=== PATIENT | female | born 1975 | race Asian ===

== ENCOUNTER 2016-09-06 18:00 | Emergency (ER) | payer SELFPAY ==
[2016-09-06 18:13] VITALS: BP 104/71
[2016-09-06] MEDS ORDERED: methylPREDNISolone 125 MG* 2 ML VIAL IM ONE (19:24)
--- NOTE | 2016-09-06 19:40 | UC ---
Allergic Reaction HPI - HPI Summary HPI Summary: ONSET OF INTENSELY PRURITIC ERYTHEMATOUS RASH ALL OVER BODY THIS AFTERNOON. NO NEW EXPOSURES SHE IS AWARE OF. NO RECENT TRAVEL OR PET/ANIMAL EXPOSURE. NO RESPIRATORY INVOLVEMENT. NO NAUSEA. NO FEVER. NO HISTORY OF ALLERGIES. - History of Current Complaint Chief Complaint: UCAllergicReaction Stated Complaint: RASH-ALLERGIC REACTION Time Seen by Provider: 09/06/16 18:58 Hx Obtained From: Patient Hx Last Menstrual Period: 08/28/16 Onset/Duration: Sudden Onset Severity Initially: Moderate Severity Currently: Moderate Pain Intensity: 0 Pain Scale Used: 0-10 Numeric Location: Diffuse Character: Swelling, Pruritus, Hives Aggrevating Factor(s): Nothing Alleviating Factor(s): Nothing Associated Signs And Symptoms: Positive: Rash. Negative: Abdominal Pain, Chest Pain, Cough Wheezing, Diaphoresis, Difficulty Breathing, Hoarseness, Lightheadedness, Nausea, Throat Tightening - Related Hx Possible Reaction To: Unknown - Allergies/Home Medications Allergies/Adverse Reactions: Allergies Allergy/AdvReac Type Severity Reaction Status Date / Time No Known Allergies Allergy Verified 09/06/16 18:05 PMH/Surg Hx/FS Hx/Imm Hx Previously Healthy: Yes - Surgical History Surgical History: None - Family History Known Family History: Positive: Hypertension - Social History Alcohol Use: None Substance Use Type: None Smoking Status (MU): Never Smoked Tobacco Review of Systems Constitutional: Negative Skin: Rash Respiratory: Negative Cardiovascular: Negative Gastrointestinal: Negative All Other Systems Reviewed And Are Negative: Yes Physical Exam Triage Information Reviewed: Yes Appearance: Well-Appearing, No Pain Distress, Well-Nourished Vital Signs: Initial Vital Signs Temp 98 F 09/06/16 18:05 Pulse 65 09/06/16 18:05 Resp 16 09/06/16 18:05 BP 104/71 09/06/16 18:05 Pulse Ox 100 09/06/16 18:05 Vital Signs Reviewed: Yes Eyes: Positive: Conjunctiva Clear ENT: Positive: Hearing grossly normal Neck: Positive: Supple Respiratory Exam: Normal Respiratory: Positive: No respiratory distress, No accessory muscle use Cardiovascular Exam: Normal Abdomen Description: Positive: Soft Musculoskeletal: Positive: No Edema Neurological: Positive: Alert Psychological: Positive: Age Appropriate Behavior Skin: Positive: rashes - LARGE ERYTHEMATOUS WHEALS ALL OVER - TRUNK, UPPER AND LOWER EXTREMITIES, NECK. FACE SPARED. MILD EXCORIATION. Allergic Reaction Course/Dx - Differential Dx/Diagnosis Provider Diagnoses: URTICARIA Discharge - Discharge Plan Condition: Stable Disposition: HOME Prescriptions: Triamcinolone 0.1% CREAM(NF) [Kenalog Cream 0.1%(NF)] 1 applic TOPICAL TID PRN # 1 tube PRN Reason: Itching predniSONE TAB* [Deltasone TAB*] 50 mg PO DAILY #7 tab Patient Education Materials: Urticaria (ED) Referrals: No Primary Care Phys,NOPCP [Primary Care Provider] - Additional Instructions: USE DAILY MOISTURIZING LOTION AVOID HOT WATER TAKE OTC ANTIHISTAMINE DAILY (CLARITIN (LORATADINE), ZYRTEC (CETIRIZINE) OR EDWINA (FEXOFENADINE) IN THE MORNING, BENADRYL 25-50MG AT NIGHT) DO NOT SCRATCH KEEP COOL, CLEAN AND DRY IT IS UNCLEAR TO WHAT YOU ARE REACTING. CONTACT AN [employer] SPECIALIST FOR EVALUATION. [facility] Address: [facility] [place] [address] [facility] [address] [place], [place] [address] [place] [address] CALL THE NUMBER BELOW FOR ASSISTANCE IN ESTABLISHING WITH A PCP An additional resource available to assist in finding the appropriate physician for your health care needs is the [facility] (Diane Suazo). You may contact them by calling [phone].
== END 2016-09-06 19:43 | disposition home or self-care (01) ==
LOC: UCEAST 18:00
DX: L50.9 Urticaria, unspecified (principal)
CPT/HCPCS: 96372; 99202; G0463; J2930

== ENCOUNTER 2016-09-07 12:11 | Emergency (ER) | payer OTHER ==
[2016-09-07] MEDS ORDERED: Famotidine TAB* 20 MG PO ONE (14:01)
--- NOTE | 2016-09-07 14:13 | UC ---
praneeth Jackson Timothy, scribed for Aimee Cheng MD on 09/07/16 at 1342 . Skin Complaint HPI - HPI Summary HPI Summary: Ms. Fan is a 41 yo female presenting to [facility] with worsening patchy rash on her arms and body since yesterday afternoon after lunch, seen yesterday at [facility] and treated for rash. She states her Sx had resolved this morning after tx, but have now returned. Pt reports hives started yesterday after eating at a restaurant. Pt without known food allergies. pt was given IM solumedrol and Rx prednisone 50mg QD. Pt has taken 2 doses with Benadryl with temporary improvement. Pt states rash is back on arms and very pruretic. PT has used Rx steroid cream without relief. Pt states walked across [facility] in th sun when her hives and itching returned. She is accompanied by her friend, Emma. She most recently self-medicated this morning at 0800 with benadryl. She denies any SOB, throat swelling, N/V. She does not believe that she has eaten anything outside of her normal diet. She denies any PMHx. Pt medication list reviewed this visit. - History of Current Complaint Chief Complaint: UCRash Time Seen by Provider: 09/07/16 13:36 Stated Complaint: RASH Hx Obtained From: Patient Hx Last Menstrual Period: 08/14/16 Onset/Duration: Gradual Onset, Lasting Days, Still Present Skin Exposure Onset/Duration: Days Ago Timing: Constant Onset Severity: Moderate Current Severity: Moderate Location: Diffuse Character: Hives Alleviating: OTC Meds Associated Signs & Symptoms: Positive: Rash. Negative: Nausea, Vomiting, Throat Tightening Related History: Possible Reaction to: Food, Possible Reaction to: Environmental Exposure - Allergy/Home Medications Allergies/Adverse Reactions: Allergies Allergy/AdvReac Type Severity Reaction Status Date / Time No Known Allergies Allergy Verified 09/06/16 18:05 Home Medications: Home Medications diPHENhydraMINE PO* [Benadryl PO 50 MG CAP*] 50 mg PO TID PRN 09/07/16 [History Confirmed 09/07/16] Review of Systems Constitutional: Negative Skin: Rash Eyes: Negative ENT: Negative Respiratory: Negative Cardiovascular: Negative Gastrointestinal: Negative Genitourinary: Negative Motor: Negative Neurovascular: Negative Musculoskeletal: Negative Neurological: Negative Psychological: Negative All Other Systems Reviewed And Are Negative: Yes PMH/Surg Hx/FS Hx/Imm Hx Previously Healthy: Yes - Surgical History Surgical History: None - Family History Known Family History: Positive: Hypertension Negative: Cardiac Disease, Diabetes - Social History Lives: Alone - [place] Alcohol Use: None Substance Use Type: None Smoking Status (MU): Never Smoked Tobacco Physical Exam Triage Information Reviewed: Yes Completion Of Physical Exam Limited Due To: Altered Mental Status Appearance: Well-Appearing, No Pain Distress, Well-Nourished Vital Signs: Initial Vital Signs Temp 98.0 F 09/07/16 12:47 Pulse 78 09/07/16 12:47 Resp 16 09/07/16 12:47 BP 105/71 09/07/16 12:47 Pulse Ox 100 09/07/16 12:47 Vital Signs Reviewed: Yes Eye Exam: Normal ENT Exam: Normal ENT: Positive: Hearing grossly normal, Pharynx normal, TMs normal Dental Exam: Normal Neck exam: Normal Neck: Positive: Supple, Nontender, No Lymphadenopathy Respiratory Exam: Normal Respiratory: Positive: Chest non-tender, Lungs clear Cardiovascular Exam: Normal Cardiovascular: Positive: RRR, No Murmur Abdominal Exam: Normal Abdomen Description: Positive: Nontender, No Organomegaly, Soft Bowel Sounds: Positive: Present Musculoskeletal Exam: Normal Neurological Exam: Normal Neurological: Positive: Alert Psychological Exam: Normal Skin: Positive: rashes - PT with urticarial hives to b/l forearms. raised, pruritic No lesions to chest, back, abd Course/Dx - Course Course Of Treatment: Roby Fan is a 41 yo female presenting to [facility] with uriticarial rash. Pt was evaluated for same yesterday. Pt was started on oral pred and has taken 2 doses of Benadryl. Sx worse following sun exposure. Pt without respiratory sx or intraoral edema. Will start pepcid, continued ATC benadryl, benadryl ointment, continue pred. reviewed heat and NSAID precautions - Differential Diagnoses - Skin Complaint Differential Diagnoses: Urticaria - Diagnoses Provider Diagnoses: urticaria Discharge - Discharge Plan Condition: Stable Disposition: HOME Prescriptions: Famotidine TAB* [Pepcid 20 MG TAB*] 20 mg PO BID #14 tab Patient Education Materials: General Allergic Reaction (ED), Cold Compress or Soak (ED), Urticaria (ED) Referrals: [facility] [Medical Doctor] - 2 Days Additional Instructions: - Take Benadryl 25mg tablets every 6-8 hours - Take pepcid, 20mg twice a day, for 7 days - Continue with Prednisone as prescribed yesterday - Avoid getting over heated - hot showers, hot baths, execise, sun - AVoid ibuprofen (advil, aleve) - Okay to apply cool cloths to your arms - Okay to use Benadryl cream to your areas that itch- this is available over the counter Please follow up with the primary care physician. [facility], provided regarding your visit to urgent care today. Do your best to avoid any hot showers , sun, or exercise until your symptoms have resolved. Return to urgent care or the emergency department with any new symptoms or any questions or concerns. The documentation as recorded by the praneeth manning Timothy accurately reflects the service I personally performed and the decisions made by me, Aimee Cheng MD.
[2016-09-07 14:22] VITALS: BP 119/64
== END 2016-09-07 14:21 | disposition home or self-care (01) ==
LOC: UCEAST 12:11
DX: L50.9 Urticaria, unspecified (principal)
CPT/HCPCS: 99212; A9270-GY; G0463